=== PATIENT | female | born 1970 | race Caucasian/White ===

== ENCOUNTER → 2019-04-23 | Outpatient (CLI) | payer OTHER | END | disposition home or self-care (01) | LOC: CFH 14:50 | PROVIDERS: ATTEND Family Medicine | DX: Z12.31 Encounter for screening mammogram for malignant neoplasm of breast (principal) | CPT/HCPCS: 77067 ==

== ENCOUNTER → 2020-12-29 | Outpatient (CLI) | payer OTHER | END | disposition home or self-care (01) | LOC: CFH 15:03 | PROVIDERS: ATTEND Family Medicine | DX: Z12.31 Encounter for screening mammogram for malignant neoplasm of breast (principal) | CPT/HCPCS: 77063; 77067 ==